=== PATIENT | male | born 1975 | race Caucasian/White ===

== ENCOUNTER 2020-05-04 07:52 | Day surgery (SDC) | payer BC ==
[~2020-05-04 07:52] MED LIST: Bupivacaine 0.5% 50 ML MDV ONE; Lidocaine 1% with EPINEPHrine 1:100,000 50 ML MDV ONE; Midazolam 1 MG/ML 2 ML SDV ONE; Propofol 200 MG/20 ML SDV ONE; fentaNYL 100 MCG/2 ML SDV ONE
[2020-05-04] MEDS ORDERED: Sodium Chloride 0.9% 1,000 ML IV SCH (08:45)
[2020-05-04] MEDS ORDERED: ceFAZolin 2 GM in Premix Bag 1 BAG IV ONE (09:00)
[2020-05-04] MEDS ORDERED: metroNIDAZOLE/Normal Saline 500 MG in Premix Bag 1 BAG IV ONE (09:00)
[2020-05-04] MEDS ORDERED: Ropivacaine 44 ML, dexAMETHasone 8 MG, EPINEPHrine 0.4 MG, Sodium Chloride 0.9% 33.6 ML NERVRT SCH ×4 (09:30)
[2020-05-04] MEDS ORDERED: Propofol 200 MG/20 ML SDV ONE ×2 (10:15→10:56)
[2020-05-04] MEDS ORDERED: Ketorolac 60 MG/2 ML SDV ONE (11:22)
[2020-05-04] MEDS ORDERED: hydrOXYzine HCL 100 MG/2 ML SDV IM ONE (11:33)
[2020-05-04] MEDS ORDERED: fentaNYL 100 MCG/2 ML SDV IVPUSH ONE (11:48)
[2020-05-04] MEDS ORDERED: Acetaminophen/HYDROcodone 325-5 MG Tab PO ONE (12:24)
--- NOTE | 2020-05-04 15:33 | OR ---
DATE OF PROCEDURE: 05/04/2020 SURGEON: Real Rojas MD PROCEDURE: Transversus abdominis plane block, bilaterally. COMPLICATIONS: None. SUPPORT TEAM MEMBER: None. RISKS: Risks, benefits, alternatives, and limitations including, but not limited to infection, bleeding, and injury to abdominal structures were explained to the patient, who wished to proceed. PROCEDURE IN DETAIL: The patient was placed in supine position. The left transversus plane was identified first. This was accessed under ultrasound guidance and approximately 80% of the solution was injected. The other side was then performed in the same manner, same fashion, same technique, and the same sequence, using the same equipment. The patient tolerated the procedure well. Real Rojas MD /[id number]
--- NOTE | 2020-05-04 15:33 | OR ---
DATE OF PROCEDURE: 05/04/2020 SURGEON: Real Rojas MD PROCEDURE: Left inguinal hernia repair, open. FINDINGS: Very large indirect inguinal hernia with a very weak pelvic floor/thin. COMPLICATIONS: None. ROLL RECLAIMER: None. RISKS: Risks, benefits, alternatives, and limitations including, but not limited to infection, bleeding, injury to abdominal structures, testicular injury leading to testicular loss, hematoma, seroma, and other risks not listed here were explained to the patient, who wished to proceed. PROCEDURE IN DETAIL: The patient was placed in a supine position. The left inguinal hernia was opened using standard curvilinear incision, after anesthetizing with lidocaine. This was then carried down with [employer]-Robeline to external oblique aponeurosis. The large hernia was identified and was intricately adhered to cord structures, which were carefully selected off. This large defect was then addressed with a plug and patch type system with interrupted sutures at approximately every 5 mm. Once this was complete, an overlay patch was then completed. The cord was then addressed with this tying on both ends. Careful attention was made not to strangulate the cord structures. The sutures were made into the muscular layers. The patient had a significant amount of inflammation in this area and the anatomy was not typical. The external oblique was then reapproximated. The skin was closed with 3-0 Vicryl and 4-0 Vicryl and Dermabond was applied. The patient tolerated the procedure well. Real Rojas MD /[id number]
== END 2020-05-04 13:25 | disposition home or self-care (01) ==
LOC: JP.SDS 07:52
PROVIDERS: ATTEND Surgery
DX: K40.90 Unilateral inguinal hernia, without obstruction or gangrene, not specified as recurrent (principal); I10 Essential (primary) hypertension; Z79.899 Other long term (current) drug therapy
CPT/HCPCS: 49505; A9270; C1713; C1781; J0171; J0690; J1100; J1885; J2250; J2704; J2795; J3010; J3410; J3490; J7030

== ENCOUNTER 2021-04-23 06:08 | Emergency (ER) | payer BC ==
--- NOTE | 2021-04-23 07:40 | EDM.PDOC ---
ED HPI GENERAL MEDICAL PROBLEM - General Stated Complaint: HEAD COLD Time Seen by Provider: 04/23/21 07:38 Source of Information: Reports: Patient, RN Notes Reviewed History Limitations: Reports: No Limitations - History of Present Illness INITIAL COMMENTS - FREE TEXT/NARRATIVE: 46-year-old gentleman presents emergency department day complaint, cough, body aches been ill for about 6 days - Related Data Allergies Allergy/AdvReac Type Severity Reaction Status Date / Time No Known Allergies Allergy Verified 05/02/20 09:33 Home Meds: Home Meds Fish Oil/[place]-3 Fatty Acids [Fish Oil 1,000 MG] 1 tab PO DAILY 01/22/17 [History] Ascorbic Acid [Vitamin C] 1,000 mg PO DAILY 05/02/20 [History] Cholecalciferol (Vitamin D3) [Vitamin D] 5,000 unit PO DAILY 05/02/20 [History] Zinc 50 mg PO DAILY 05/02/20 [History] lisinopriL [Lisinopril] 10 mg PO DAILY 05/02/20 [History] Past Medical History HEENT History: Reports: Impaired Vision Other HEENT History: wears glasses Gastrointestinal History: Reports: Other (See Below) Other Gastrointestinal History: inguinal hernia Genitourinary History: Reports: None Musculoskeletal History: Reports: Fracture Other Musculoskeletal History: left index finger FX and laceration 05/02/20 - Infectious Disease History Infectious Disease History: Reports: Chicken Pox - Past Surgical History Musculoskeletal Surgical History: Reports: None Social & Family History - Family History Family Medical History: No Pertinent Family History - Caffeine Use Caffeine Use: Reports: None ED ROS GENERAL - Review of Systems Review Of Systems: See Below Constitutional: Reports: Fever, Weakness Respiratory: Reports: Shortness of Breath, Cough Cardiovascular: Reports: No Symptoms Musculoskeletal: Reports: Muscle Pain ED EXAM, GENERAL - Physical Exam Exam: See Below Exam Limited By: No Limitations General Appearance: Alert, WD/WN, No Apparent Distress Respiratory/Chest: No Accessory Muscle Use, Chest Non-Tender, Rhonchi Cardiovascular: Regular Rate, Rhythm, No Murmur Course - Orders/Labs/Meds Labs: Laboratory Tests 04/23/21 Range/Units 07:44 SARS-CoV-2 RNA (JCARLOS) Positive H (NEGATIVE) Departure - Departure Time of Disposition: 07:50 Disposition: Home, Self-Care 01 Condition: Fair Clinical Impression: COVID-19 - Discharge Information Instructions: COVID-19: How to Protect Yourself and Others - CDC, 10 Things You Can Do to Manage Your COVID-19 Symptoms at Home - [facility] (02/08/2021) Referrals: PCP,None [Primary Care Provider] - Additional Instructions: Outpatient surgery center will call you for an appointment time for more monoclonal antibody therapy treatment call return to the emergency department worsening symptoms - Assessment/Plan Plan: Assessment Acuity = acute Site and laterality = viral syndrome Etiology = COVID-19 Manifestations = body aches, fever Location of injury = Home Lab values = positive for coronavirus COVID-19 Plan Because he is 6 days out from symptoms he is a candidate for monoclonal antibody therapy order was written for that follow-up outpatient surgery center This note was dictated using [employer] voice recognition software please call with any questions on syntax or grammar.
[2021-04-23] MEDS ORDERED: EPINEPHrine 1 MG/ML SDV IM PRN (09:00)
[2021-04-23] MEDS ORDERED: methylPREDNISolone Sodium Succinate 125 MG/2 ML SDV IM PRN (09:00)
[2021-04-23] MEDS ORDERED: diphenhydrAMINE 50 MG/ML SDV IM PRN (09:00)
[2021-04-23] MEDS ORDERED: Acetaminophen 325 MG Tab PO PRN (09:00)
== END 2021-04-23 10:08 | disposition home or self-care (01) ==
LOC: JP.ED 07:17
DX: U07.1 COVID-19 (principal)
CPT/HCPCS: 87635; 99283; M0243; Q0243; U0002

== ENCOUNTER 2024-03-02 15:56 | Inpatient (IN) | payer BC, OTHER ==
[2024-03-02 17:00] LABS: BASE EXCESS VENOUS -0.6 mm/L; BICARBONATE,VENOUS 23.7 mmol/L; CARBOXYHEMOGLOBIN 4.1 % (0.0-1.6); METHEMOGLOBIN 1.2 %; O2 SATURATION VENOUS 41.5; OXYHEMOGLOBIN 39.3 %; PCO2 VENOUS 39.9 mm/Hg; PH,VENOUS 7.392 (7.350-7.450); TOTAL HEMOGLOBIN 12.4 g/dL (13.5-18.0)
[2024-03-02 17:03] LABS: HEMATOCRIT 31.9 % (38.4-49.7); HEMOGLOBIN 11.7 g/dL (12.9-16.9); MEAN CORPUSCULAR HGB CONC 36.7 g/dL (31.6-35.5); MEAN CORPUSCULAR VOLUME 84.6 fL (81.4-99.0); PLATELET COUNT,PLT 49 K/uL (130-375); RED BLOOD CELL COUNT 3.77 M/uL (4.14-5.76); WHITE BLOOD CELL COUNT,WBC 5.2 K/uL (3.2-11.0)
[2024-03-02] MEDS: Sodium Chloride 0.9% 1,000 ML IV SCH (17:06)
[2024-03-02 17:14] LABS: PO2 VENOUS 26.8 mm/Hg
[2024-03-02] MEDS: Ondansetron 4 MG/2 ML SDV IVPUSH ONE (17:16)
[2024-03-02 17:20] LABS: INR 1.2; PROTHROMBIN TIME 11.9 sec (9.2-10.6)
[2024-03-02 17:25] LABS: ATYPICAL LYMPHOCYTES RARE; BAND ABSOLUTE MAN 0.42 K/uL; BAND PERCENT MAN 8 % (5-11); LYMPHOCYTES PERCENT MAN 23 % (24-44); METAMYELOCYTE ABSOLUTE MAN 0.05 K/uL; METAMYELOCYTE PERCENT MAN 1 %; MONOCYTES ABSOLUTE MAN 0.47 K/uL (0.20-0.90); MONOCYTES PERCENT MAN 9 % (2-6); NEUTROPHILS ABSOLUTE MAN 3.07 K/uL (1.0-7.6); SEG NEUTROPHILS PERCENT MAN 59 % (36-66)
[2024-03-02 17:26] LABS: A/G RATIO 0.5 (1.2-2.2); ALANINE AMINOTRANSFERASE,ALT 58 U/L (12-78); ALBUMIN 2.1 g/dL (3.4-5.0); ALKALINE PHOSPHATASE 132 U/L (46-116); ASPARTATE AMNIOTRANSFERASE,AST 134 U/L (15-37); BILIRUBIN TOTAL 6.8 mg/dL (0.2-1.0); BLOOD UREA NITROGEN,BUN 62 mg/dL (7-18); CALCIUM 8.6 mg/dL (8.5-10.1); CARBON DIOXIDE,CO2 25 mmol/L (21-32); CHLORIDE,CL 101 mmol/L (100-108); CREATININE 2.5 mg/dL (0.8-1.3); EST CRCL DRUG DOSING (CG) 32.68 mL/min; ESTIMATED GFR 30 mL/min (>60); GLUCOSE RANDOM 134 mg/dL (74-106); POTASSIUM,K 3.8 mmol/L (3.6-5.2); PROTEIN TOTAL,TP 6.4 g/dL (6.4-8.2); SODIUM,NA 137 mmol/L (140-148)
[2024-03-02 17:27] LABS: ANION GAP 14.8 mmol/L (5.0-14.0); TARGET CELLS RARE
[2024-03-02] MEDS ORDERED: Sodium Chloride 0.9% 1,000 ML IV ONE (17:31)
[2024-03-02 17:41] LABS: LYME AB IgG Positive (Negative); LYME AB IgM Positive (Negative)
[2024-03-02 17:47] LABS: CORONAVIRUS COVID-19 NAA NEGATIVE (NEGATIVE); INFLUENZA A NAA NEGATIVE (NEGATIVE); INFLUENZA B NAA NEGATIVE (NEGATIVE); RESPIRATORY SYNCYTIAL VIR NAA NEGATIVE (NEGATIVE)
[2024-03-02] MEDS: cefTRIAXone 2 GM in Sodium Chloride 0.9% 50 ML IV ONE (18:22)
[2024-03-02] MEDS: Acetaminophen/HYDROcodone 325-5 MG Tab PO ONE (18:56)
[2024-03-02] MEDS: Sodium Chloride 0.9% 1,000 ML IV ONE (19:32)
[2024-03-02] MEDS ORDERED: Albuterol 0.083% 2.5 MG/3 ML Neb Soln NEB PRN (19:51)
[2024-03-02] MEDS ORDERED: Bisacodyl 5 MG Tab PO PRN (19:51)
[2024-03-02] MEDS ORDERED: Docusate Sodium 100 MG Cap PO PRN (19:51)
[2024-03-02] MEDS ORDERED: Albuterol/Ipratropium 3.0-0.5 MG/3 ML Neb Soln NEB PRN (19:51)
[2024-03-02] MEDS ORDERED: Morphine 2 MG/ML SYRINGE IVPUSH PRN (19:51)
[2024-03-02] MEDS ORDERED: Ondansetron 4 MG/2 ML SDV IV PRN (19:51)
[2024-03-02] MEDS ORDERED: Naloxone 0.4 MG/ML SDV IVPUSH PRN (19:51)
[2024-03-02] MEDS ORDERED: Ondansetron 4 MG Tab.DIS PO PRN (19:51)
[2024-03-02] MEDS: Enoxaparin 40 MG/0.4 ML Syringe SUBCUT SCH (20:30)
[2024-03-02] MEDS: Pantoprazole 40 MG Tab.CR PO SCH (20:54)
[2024-03-02 22:41] LABS: LACTIC ACID 2.1 mmol/L (0.4-2.0)
[2024-03-03] MEDS: Acetaminophen 325 MG Tab PO PRN (01:43)
[2024-03-03] MEDS: Sodium Chloride 0.9% 1,000 ML IV SCH ×2 (03:26→21:00)
[2024-03-03] MEDS: Ketorolac 30 MG/ML SDV IVPUSH PRN (04:56)
[2024-03-03] MEDS: cefTRIAXone 2 GM in Sodium Chloride 0.9% 50 ML IV SCH (05:00)
[2024-03-03 05:25] LABS: HEMATOCRIT 24.7 % (38.4-49.7); HEMOGLOBIN 9.1 g/dL (12.9-16.9); MEAN CORPUSCULAR HEMOGLOBIN 31.3 pg (31.6-35.5); MEAN CORPUSCULAR HGB CONC 36.8 g/dL (31.6-35.5); MEAN CORPUSCULAR VOLUME 84.9 fL (81.4-99.0); PLATELET COUNT,PLT 60 K/uL (130-375); RED BLOOD CELL COUNT 2.91 M/uL (4.14-5.76); WHITE BLOOD CELL COUNT,WBC 5.3 K/uL (3.2-11.0)
[2024-03-03 05:45] LABS: A/G RATIO 0.5 (1.2-2.2); ALANINE AMINOTRANSFERASE,ALT 47 U/L (12-78); ALBUMIN 1.7 g/dL (3.4-5.0); ALKALINE PHOSPHATASE 107 U/L (46-116); BILIRUBIN TOTAL 4.9 mg/dL (0.2-1.0); BLOOD UREA NITROGEN,BUN 62 mg/dL (7-18); CALCIUM 7.3 mg/dL (8.5-10.1); CARBON DIOXIDE,CO2 22 mmol/L (21-32); CHLORIDE,CL 105 mmol/L (100-108); EST CRCL DRUG DOSING (CG) 37.14 mL/min; ESTIMATED GFR 35 mL/min (>60); GLUCOSE RANDOM 122 mg/dL (74-106); MAGNESIUM 1.7 mg/dL (1.8-2.4); POTASSIUM,K 4.2 mmol/L (3.6-5.2); SODIUM,NA 137 mmol/L (140-148)
[2024-03-03 05:47] LABS: ANION GAP 14.2 mmol/L (5.0-14.0); ASPARTATE AMNIOTRANSFERASE,AST 121 U/L (15-37); PROTEIN TOTAL,TP 5.1 g/dL (6.4-8.2)
[2024-03-03 05:48] LABS: CREATININE 2.2 mg/dL (0.8-1.3)
[2024-03-03 05:58] LABS: BAND ABSOLUTE MAN 0.48 K/uL; BAND PERCENT MAN 9 % (5-11); LYMPHOCYTES ABSOLUTE MAN 1.59 K/uL (0.8-3.3); MONOCYTES ABSOLUTE MAN 0.58 K/uL (0.20-0.90); MONOCYTES PERCENT MAN 11 % (2-6); NEUTROPHILS ABSOLUTE MAN 2.54 K/uL (1.0-7.6); PROMYELOCYTE ABSOLUTE MAN 0.11 K/uL; PROMYELOCYTE PERCENT MAN 2 %; SEG NEUTROPHILS PERCENT MAN 48 % (36-66)
[2024-03-03 05:59] LABS: LYMPHOCYTES PERCENT MAN 30 % (24-44)
[2024-03-03] MEDS ORDERED: Enoxaparin 40 MG/0.4 ML Syringe SUBCUT SCH (09:00)
[2024-03-03] MEDS ORDERED: Lisinopril 10 MG Tab PO SCH (09:00)
[2024-03-03] MEDS: atorvaSTATin 20 MG Tab PO SCH (09:18)
[2024-03-03] MEDS: Azithromycin 250 MG Tab PO ONE (12:20)
[2024-03-03] MEDS: Atovaquone 750 MG/5 ML Susp 5 ML Packet PO ONE ×2 (13:34→21:01)
[2024-03-03] MEDS: oxyCODONE 5 MG Tab PO PRN (14:30)
[2024-03-03] MEDS: Doxycycline 100 MG in Sodium Chloride 0.9% 100 ML IV SCH (20:54)
[2024-03-03] MEDS: Melatonin 3 MG Tab PO PRN (21:06)
[2024-03-04 06:05] LABS: HEMATOCRIT 22.9 % (38.4-49.7); HEMOGLOBIN 8.2 g/dL (12.9-16.9); MEAN CORPUSCULAR HEMOGLOBIN 30.7 pg (31.6-35.5); MEAN CORPUSCULAR HGB CONC 35.8 g/dL (31.6-35.5); MEAN CORPUSCULAR VOLUME 85.8 fL (81.4-99.0); RED BLOOD CELL COUNT 2.67 M/uL (4.14-5.76); WHITE BLOOD CELL COUNT,WBC 11.7 K/uL (3.2-11.0)
[2024-03-04 06:32] LABS: A/G RATIO 0.4 (1.2-2.2); ALANINE AMINOTRANSFERASE,ALT 49 U/L (12-78); ALBUMIN 1.6 g/dL (3.4-5.0); ALKALINE PHOSPHATASE 112 U/L (46-116); ANION GAP 9.5 mmol/L (5.0-14.0); BILIRUBIN TOTAL 4.3 mg/dL (0.2-1.0); BLOOD UREA NITROGEN,BUN 52 mg/dL (7-18); CALCIUM 8.1 mg/dL (8.5-10.1); CARBON DIOXIDE,CO2 23 mmol/L (21-32); CHLORIDE,CL 108 mmol/L (100-108); CREATININE 1.6 mg/dL (0.8-1.3); EST CRCL DRUG DOSING (CG) 51.07 mL/min; ESTIMATED GFR 52 mL/min (>60); GLUCOSE RANDOM 122 mg/dL (74-106); POTASSIUM,K 4.4 mmol/L (3.6-5.2); SODIUM,NA 140 mmol/L (140-148)
[2024-03-04 06:51] LABS: PROTEIN TOTAL,TP 5.6 g/dL (6.4-8.2)
[2024-03-04 06:52] LABS: ASPARTATE AMNIOTRANSFERASE,AST 103 U/L (15-37)
[2024-03-04] MEDS: Azithromycin 250 MG Tab PO SCH (08:39)
[2024-03-04] MEDS: Atovaquone 750 MG/5 ML Susp 5 ML Packet PO SCH (08:39)
[2024-03-05 17:20] LABS: B. BURGDORFERI IGG IMMUNOBLOT Negative (Negative); B. BURGDORFERI IGM IMMUNOBLOT Positive (Negative)
[2024-03-06 01:06] LABS: ANAPLASMA PHAGOCYTOPHILUM PCR Not Detected; BABESIA MICROTI BY PCR Detected; BABESIA SPECIES BY PCR Detected; EHRLICHIA CHAFFEENSIS BY PCR Not Detected; EHRLICHIA EWINGII/CANIS BY PCR Not Detected; EHRLICHIA MURIS-LIKE BY PCR Not Detected
== END 2024-03-04 14:25 | disposition home or self-care (01) | DRG 872 ==
LOC: JP.ED 15:56 → JP.MS 18:18
PROVIDERS: ADMIT Internal Medicine; ATTEND Internal Medicine
DX: A41.89 Other specified sepsis (principal); N17.9 Acute kidney failure, unspecified; A69.20 Lyme disease, unspecified; A77.49 Other ehrlichiosis; B60.00 Babesiosis, unspecified; R65.20 Severe sepsis without septic shock; E78.00 Pure hypercholesterolemia, unspecified; I10 Essential (primary) hypertension; Z90.81 Acquired absence of spleen; Z98.52 Vasectomy status
CPT/HCPCS: 0241U; 36415; 71045; 71045-26; 80053; 82150; 82803; 83605; 83690; 83735; 84145; 85018; 85025; 85027; 85610; 86617; 86618; 87040; 87468; 87469; 87484; 87798; 96361; 96374; 99222; 99232; 99238; 99284; 99284-25; A9270-GY; J0696; J1885; J2405; J3490; J7030